=== PATIENT | male | born 1965 | race Caucasian/White ===

== ENCOUNTER 2022-01-31 10:50 | Day surgery (SDC) | payer MEDICAID ==
[2022-01-30 13:45] LABS: COVID AG,FIA SOURCE NASAL SWAB
[~2022-01-31] VITALS: Ht 162.6 cm; Wt 81.8 kg
[~2022-01-31 10:50] MED LIST: SODIUM CHLORIDE 0.9% 1,000 ML ONE
[2022-01-31] MEDS ORDERED: SODIUM CHLORIDE 0.9% 1,000 ML IV ONE (11:00)
[2022-01-31] MEDS ORDERED: LIDOCAINE/PF 2% 5 ML VIAL IM ONE (12:00)
[2022-01-31] MEDS ORDERED: PROPOFOL 1% 20 ML VIAL IVP ONE (12:00)
[2022-01-31] MEDS ORDERED: METF-446 PO (12:02)
[2022-01-31] MEDS ORDERED: ATOR-2 PO (12:02)
[2022-01-31 12:36] LABS: GLUCOMETER DEV NAME(LOC) SDS.; GLUCOSE,POINT OF CARE 119 MG/DL (70-110)
== END 2022-01-31 14:30 | disposition home or self-care (01) ==
LOC: SURGERY 10:50
PROVIDERS: ATTEND Internal Medicine Gastroenterology
DX: K64.8 Other hemorrhoids (principal); K63.5 Polyp of colon; K29.70 Gastritis, unspecified, without bleeding; I10 Essential (primary) hypertension; E78.5 Hyperlipidemia, unspecified; E11.9 Type 2 diabetes mellitus without complications; Z79.899 Other long term (current) drug therapy; Z98.890 Other specified postprocedural states
CPT/HCPCS: 45380; 43239; 82962; 87426; 88305; 88312; 88313; 88342; C9803; J2704; J3490; J7030